=== PATIENT | male | born 1980 | race Caucasian/White ===

== ENCOUNTER 2021-11-11 09:30 | Outpatient (RCR) | payer OTHER, SELFPAY ==
[2021-11-11 09:45] VITALS: BMI 30.3
[2021-11-11 11:26] VITALS: BMI 30.3
== END 2021-12-11 12:03 | disposition home or self-care (01) ==
LOC: ANHDMC 09:30
PROVIDERS: Visit Provider Internal Medicine Endocrinology, Diabetes & Metabolism
DX: E10.65 Type 1 diabetes mellitus with hyperglycemia (principal); Z71.3 Dietary counseling and surveillance; Z71.89 Other specified counseling
CPT/HCPCS: 97802; G0108